=== PATIENT | female | born 2000 | race Hispanic/Latino ===

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

== ENCOUNTER 2024-10-07 16:16 | Emergency (ER) | payer SELFPAY ==
[~2024-10-07] VITALS: Ht 167.6 cm; Wt 79.4 kg
[2024-10-07 16:54] LABS: RAPID GROUP A STREP negative (NEGATIVE)
[2024-10-07 17:08] LABS: INFLUENZA TYPE A Negative For Type A (NEGATIVE); INFLUENZA TYPE B Negative For Type B (NEGATIVE)
[2024-10-07 17:32] LABS: SARS-CoV-2, RNA, NAAT NEGATIVE SARS CoV-2 (NEGATIVE)
[2024-10-07 17:56] VITALS: TEMP 99.9
[2024-10-07] MEDS: acetaMINOPHEN 500 MG TABLET PO ONE (17:56)
[2024-10-07] MEDS ORDERED: AZIT250T9 PO (17:59)
[2024-10-07] MEDS ORDERED: METH4TAB3 PO (17:59)
--- NOTE | 2024-10-07 18:00 | ERN ---
General Chief Complaint: Cough Stated Complaint: FLU SYMPTOMS Time Seen by MD: 16:20 Time Seen by Midlevel: 16:20 Source: patient History of Present Illness Initial Comments Patient is a 24-year-old female presenting to the emergency department for evaluation of flu-like symptoms that has been ongoing for the last couple of days. Patient reports losing her voice which concerned her so she decided to report to the ER for further evaluation. Allergies: Coded Allergies: No Known Drug Allergies (Unverified Allergy, Unknown, 12/22/17) Home Meds No Active Prescriptions or Reported Meds Past Medical History Past Medical History: No Pertinent History Past Surgical History: None Female( History) LMP: Oct 03, 2024 ROS Dictation CONSTITUTIONAL: Negative except for HPI HEAD/FACE: Negative except for HPI EENT: Negative except for HPI RESPIRATORY: Negative except for HPI GASTROINTESTINAL/ABDOMINAL: Negative except for HPI GENITOURINARY: Negative except for HPI MUSCULOSKELETAL: Negative except for HPI INTEGUMENTARY: Negative except for HPI NEUROLOGICAL/PSYCH: Negative except for HPI HEMATOLOGIC/LYMPHATIC: Negative except for HPI All Systems Negative, Except as noted above. 13 point review of systems assessed and all negative except for above. Physical Exam Physical Exam Dictation Vital Signs reviewed General Appearance: Alert, oriented x 3, no acute distress, well developed, nourished. Head and Face: non-traumatic. Eyes: PERRL, pink conjunctivas, eyelid no trauma, anterior chamber with arcus senilis. Ears: Pinnas intact and no signs of trauma or erythema ear canals clear and no discharge TM no erythema Nose: No discharge, no bleeding. Oropharynx: Mouth normal, tongue pink, pharynx clear,no erythema, tonsils no exudates, no abscesses noted, mucous membrane moist Neck: Supple, non-tender, no thyromegaly, no masses, no JVD, no bruits Breast:Deferred Chest:No tenderness, no crepitus, no paradoxical movement, no retractions Lungs:Clear, well-ventilated, symmetric, no rales, no wheezing, no rhonchi, no stridor, good breath sounds bilaterally Heart: Regular rate, regular rhythm, no murmur, no gallops Vascular: no peripheral edema, Abdomen: Soft, positive bowel sounds, nondistended, no guarding, nontender, no rebound, no masses no hepatomegaly, no splenomegaly, no Means's sign, no hernias. Rectal: Deferred Genital: Deferred Neurological: Normal speech, motor function intact, sensory function intact Musculoskeletal: Neck nontender, full range of motion, back nontender, full range of motion, Extremities: nontender, full range of motion Skin: Color pink, dry, no turgor, no rash, no lacerations, no abrasions, no contusions. Lymphatic: Deferred Results Laboratory and Microbiology Lab and Micro Result Laboratory Tests Test 10/07/24 16:35 Influenza Type A Antigen Negative For Type A Influenza Type B Antigen Negative For Type B SARS-CoV-2, RNA, NAAT NEGATIVE SARS CoV-2 Group A Streptococcus Rapid negative (NEGATIVE) Labs Reviewed?: Yes MDM MDM: Differential diagnosis: Viral syndrome, upper respiratory infection, strep pharyngitis There are no social concerns with this patient. Prescription drug management Prescriptions will include: Azithromycin and Medrol pack Medical management and examination interpretation discussions were had by me with other qualified healthcare professionals as indicated for the patient's care. ED Course Orders Procedure Category Date Status Time Covid Rna Naat LAB 10/07/24 Complete 16:23 Influenza Type A & B, LAB 10/07/24 Complete Rapid 16:23 Rapid (Group A Strep) LAB 10/07/24 Complete 16:23 Dexamethasone 4mg/Ml PHA 10/07/24 Complete 1ml Vial (Dexametha 16:30 Acetaminophen 500mg PHA 10/07/24 In Process Tab (Tylenol 500mg T 18:00 Current Medications Medications (Trade) Dose Ordered Sig/Sahdi Route PRN Reason Start Time Stop Time Status Last Admin Dose Admin Acetaminophen (TYLenol 500MG TAB) 1,000 mg ONCE ONCE PO 10/07/24 18:00 10/07/24 18:01 10/07/24 17:56 Dexamethasone Sodium Phosphate (dexaMETHasone 4MG/ML 1ML VIAL) 4 mg ONCE ONCE IM 10/07/24 16:30 10/07/24 16:31 DC Vital Signs Date Time Temp Pulse Resp B/P (MAP) Pulse Ox O2 Delivery O2 Flow Rate FiO2 10/07/24 17:56 99.9 10/07/24 16:19 99.9 88 18 140/78 99 Room Air 0 DX & DISP Disposition: Discharge Departure Impression: Primary Impression: Laryngitis Additional Impression: Upper respiratory infection Condition: Stable Scripts Azithromycin (Azithromycin) 250 Mg Tablet 1 TAB PO AD for 5 Days, #6 TAB 0 Refills 2 the first day followed by 1 for days 2-5 Prov: EMILEE AGEE 10/07/24 Methylprednisolone (Medrol) 4 Mg Tab.ds.pk 1 TAB PO AD for 6 Days, #21 TAB 0 Refills 6 on day 1 then reduce by one tablet daily until gone Prov: EMILEE AGEE 10/07/24 Additional Instructions: You have tested negative for influenza a, influenza B, COVID-19 and strep pharyngitis. Please follow up with the primary care doctor in 2-3 days for repeat evaluation. Referrals: ADRIANE MIXON MD (PCP) Time of Disposition: 17:58 I have reviewed the case, and I agree with, Diagnosis and Plan I performed the substantive portion of the visit. I have reviewed and personally made and approve the management plan that is documented in the note by myself or the LINDSAY. I acknowledge for responsibility for the patient's management plan. EMILEE AGEE Oct 07, 2024 18:00
[2024-10-07] MEDS: dexaMETHasone SOD PHOSPHATE 4 MG/ML 1ML VIAL IM ONE (18:01)
[2024-10-07 18:13] VITALS: BP 131/75; PULSE 85; RESP 18; TEMP 98.2; O2SAT 99
== END 2024-10-07 18:14 | disposition home or self-care (01) ==
LOC: EDH 16:16
DX: J04.0 Acute laryngitis (principal); J06.9 Acute upper respiratory infection, unspecified; Z20.822 Contact with and (suspected) exposure to COVID-19
CPT/HCPCS: 99283; 87635; 87880; 87804 ×2; 96372; J1100